=== PATIENT | male | born 1985 | race Caucasian/White ===

== ENCOUNTER → 2017-10-30 | Day surgery (SDC) | payer BC ==
[~2017-10-30] MED LIST: HYDROmorphone 2 MG/ML VIAL IV PRN; IV RINGERS,LACTATED 1000ML 1,000 ML IV SCH; LIDOCAINE 1% PF 2 ML VIAL. ID PRN; LIDOCAINE 2% PF Vial for OR 5 ML VIAL. ONE; MORPHINE SULFATE 2 MG/ML DISP.SYRIN. IV PRN; ONDANSETRON PF 4 MG/2 ML VIAL. IV PRN; PROCHLORPERAZINE 10 MG/2 ML VIAL. IV PRN; PROPOFOL 20 ML IV ONE; PROPOFOL 40 ML IV ONE; fentaNYL PF VIAL 100 MCG/2 ML VIAL IV PRN
[2017-10-30 11:15] VITALS: BP 117/68
--- NOTE | 2017-10-30 21:16 | CONS ---
DATE OF CONSULTATION: 10/30/2017 REFERRING PHYSICIAN: Dr. Wai Roca. HISTORY OF PRESENT ILLNESS: A 32-year-old male whose past medical history is significant for some asthma and seen for persistent diarrhea. It has been ongoing now for approximately 6 weeks, but no exotic travel, well water consumption or recent antibiotics. Given the extraintestinal manifestations of IBD are present, he does have 2-6 loose nonbloody stools daily, weight loss of 20 pounds was also noted. He does have increased symptoms after meals and is here today for further evaluation. PAST MEDICAL HISTORY: Asthma, diarrhea. ALLERGIES: None. MEDICATIONS: None. FAMILY HISTORY: Significant for diabetes and asthma. Hypertension with both parents. SOCIAL HISTORY: He is a social drinker, nonsmoker. PAST SURGICAL HISTORY: Noncontributory. REVIEW OF SYSTEMS: As above. PHYSICAL EXAMINATION: GENERAL: A well-nourished, well-developed male. VITAL SIGNS: Temperature is 98, pulse , respiratory rate 20. HEENT: Reveals normocephalic, atraumatic head. Pupils and extraocular muscles not tested. Sclerae anicteric. NECK: Supple. LUNGS: Clear. CARDIOVASCULAR: Reveals S1, S2 without S3, S4 or appreciable murmur. ABDOMEN: Reveals soft abdomen, normal bowel sounds, without appreciable splenomegaly. EXTREMITIES: Reveals no cyanosis, clubbing, edema. IMPRESSION: Diarrhea with weight loss, etiology is to be determined, inflammatory bowel disease, Crohn's, ulcerative colitis, infectious colitis, malabsorption with celiac disease certainly in the differential; therefore, recommend colonoscopy with possible biopsy. Risks and benefits of procedure were discussed with the patient including risk of hemorrhage and perforation and is willing to proceed. RONAL FARMER MD DR: BECCA/ozzy JOB#: [id number] / [id number]
--- NOTE | 2017-11-02 13:33 | PATHOLOGY ---
PATHOLOGY REPORT * * * * * * * * FINAL DIAGNOSIS: Colonic mucosa, random colon biopsies: - No significant pathologic abnormalities. COMMENT: Sections of the random colon biopsy reveal multiple segments of colonic mucosa containing multiple mucosal-associated lymphoid aggregates. There is no evidence of a chronic destructive colitis, lymphocytic colitis, or collagenous colitis. (JPM:pit; 11/02/2017) REPORT ELECTRONICALLY SIGNED BY: Kam Panchal M.D. DATE/TIME: 11/02/2017 13:32 * * * * * * * * GROSS PATHOLOGY: Received in formalin labeled "Ramandeep Cornejo, random colon biopsies," are multiple (more than 10) segments of oh soft tissue measuring 1.8 x 1.0 x 0.3 cm in aggregate dimensions and ranging from 0.1 to 0.4 cm in maximum dimension. The specimen is submitted entirely in cassette A1. (TSD; 10/30/2017) INITIAL CPT CODE(S): A; 29710 Professional services performed by [facility] [address] Technical services performed by [facility] at [address] [place] [address]. SPECIMEN(S) RECEIVED: A.Random colon biopsies CLINICAL HISTORY: Diarrhea PATIENT: RAMANDEEP CORNEJO /AGE: 605/21/1985 (Age: 32) PATIENT #: [id number] ALT CASE #: SPECIMEN COLLECTION DATE: 10/30/2017 SPECIMEN RECEIVED DATE: 10/30/2017 [facility] - [address] [place] [address] - PHONE: [phone] * * * END OF REPORT * * *
== END | disposition home or self-care (01) ==
LOC: ENDOS 09:40
PROVIDERS: ATTEND Internal Medicine Gastroenterology
DX: K64.0 First degree hemorrhoids (principal); I10 Essential (primary) hypertension; Z87.39 Personal history of other diseases of the musculoskeletal system and connective tissue
CPT/HCPCS: 45380; 88305; J2704; J2001